=== PATIENT | male | born 2000 | race Caucasian/White ===

== ENCOUNTER 2022-05-05 08:53 | Inpatient (IN) ==
[2022-05-05] MEDS ORDERED: PROMETHAZINE 6.25 MG/50.25 ML BAG IV STA (09:12)
[2022-05-05] MEDS ORDERED: LORazepam 2 MG/1 ML VIAL IV STA ×2 (09:12→10:49)
[2022-05-05] MEDS ORDERED: SODIUM CHLORIDE 0.9% 1000ML 1,000 ML IV ONE (09:12)
--- NOTE | 2022-05-05 09:20 | Emergency Department Note ---
Impression & Plan Weakness, Anxiety ED Provider Note NAME: BLAKE LANDEROS AGE: 21 SEX: M : 2000 ARRIVES VIA: Walk-In INFORMANT: [Patient] ED PROVIDER(S): [Todd Hess MD] CHIEF COMPLAINT: Anxiety HISTORY OF PRESENT ILLNESS: Patient is a 21-year-old male who has a history of anxiety. He states that he has been back in [place] for less than a week. He is here for school. He has been feeling very anxious for 5 days, he cannot function, he cannot sleep. He feels like he is going to pass out, he cannot eat. He is weak. The patient is taking his regular medications as prescribed. He was given a prescription for Klonopin by his psychiatry team however, this medication has not helped. He has an appointment today at 330pm to see psychiatry, however, he felt so poorly, he presents to the ER. Patient is not suicidal, he is not vomiting. He is not sure if he needs to be hospitalized for his anxiety or not. He has not undergone previous psychiatric hospitalization. The patient states that he is not sure why he is more anxious. He is back here in school but really, he cannot put a finger on why he is having so much difficulty. REVIEW OF SYSTEMS: See HPI for pertinent positives and negatives. A total of ten systems were rev iewed and were otherwise negative. PMHx/PSHx: See Below SOCIAL HISTORY: See Below. PHYSICAL EXAM: GENERAL: Patient is in mild distress, quite anxious HEENT: No acute trauma, normocephalic atraumatic, mucous membranes moist, no nasal congestion, no scleral icterus. NECK: No stridor, no adenopathy, no meningismus, trachea is midline. LUNGS: Clear to auscultation bilaterally, no wheeze, no rhonchi, breath sounds equal. HEART: Without murmurs gallops or rubs, regular rate and rhythm. ABDOMEN: Soft, nontender, bowel sounds positive, no peritonitis. EXTREMITIES: No cyanosis or edema, full range of motion of all the joints without pain or difficulty, no signs for acute trauma. NEUROLOGIC: Oriented x 3, no acute motor or sensory deficits, no focal weakness. SKIN: No rash, no jaundice, no diaphoresis. Psychiatric: Anxious, cooperative, voluntary, denies being suicidal. DIFFERENTIAL DIAGNOSIS: Mood disorder, infection, hypoglycemia, anxiety, depression, suicidality, dehydration, electrolyte abnormalities, cardiac sources, intracerebral event, toxicologic etiology, trauma, neurologic event, as well as other pathologies. EMERGENCY DEPARTMENT COURSE/PROCEDURES: ECG: Indication was weakness and panic. The ECG shows a sinus rhythm with some sinus arrhythmia. The rate is 71. There is no ST elevation, no PVCs. QTC is 436. MEDICAL DECISION MAKING: There is no leukocytosis or concerning anemia. There is a normal platelet count. No renal failure or significant electrolyte abnormality. No concerning liver enzyme elevation. Patient appears to be in a euthyroid state. Urinalysis does not show any evidence for infection. Urine tox shows marijuana. Aspirin, Tylenol and alcohol levels were undetectable. COVID test returned negative. Patient presents complaining of anxiety and weakness. He was given IV saline f or hydration. He was given IV Phenergan. He received IV Ativan, a second dose of IV Ativan was given. The patient was felt medically clear. He was seen by psychiatry case management. He initially elected to go home with outpatient care but then, he suddenly felt worse and had a tearful spell, he felt that he would require an inpatient stay. The patient was seen by our psychiatric services, [facility]. He has been accepted to their floor voluntarily. The paperwork for the hospitalization was completed and signed. Past Med/Surg History Medical History Anxiety Asperger syndrome Family History Other Coronary heart disease Crohn's disease Myocardial infarction Social History Smoking Status: Current every day smoker Preferred Language: Armenian Communication Ability: Effective Medical Record Assistant Required: No Beliefs That Will Affect Care: None Feels Safe at Home: Yes Assistive Devices: Glasses Allergies Allergies Allergy/AdvReac Type Severity Reaction Status Date / Time cashew nut Allergy Intermediate itchy Verified 09/30/19 00:34 throat pistachio nut Allergy Intermediate itchy Verified 09/30/19 00:35 throat Home Meds Home Medications Medication Instructions Recorded Confirmed lamotrigine 150 mg tablet 150 mg PO DAILY 05/05/22 05/05/22 propranolol 20 mg tablet 20 mg PO BID 05/05/22 05/05/22 quetiapine 25 mg tablet See Rx Instructions .Route .COMPLEX 05/05/22 05/05/22 Results & Data (ED) Vital Signs Vital Signs - 24 hr 05/05/22 08:58 05/05/22 10:00 05/05/22 08:54 Temperature 36.6 C Temperature Source Temporal Artery Scan Pulse Rate 73 Pulse Rate [Apical] 91 H Pulse Rhythm Regular Pulse Rhythm [Apical] Regular Pulse Strength Normal Pulse Strength [Apical] Normal Respiratory Rate 18 22 Respiratory Effort / Characteristics Non-Labored Non-Labored Spontaneous Respiratory Depth Normal Normal Respiratory Pattern Regular Blood Pressure 150/86 H Blood Pressure [Left Arm] 116/65 Blood Pressure Mean 107 Blood Pressure Mean [Left Arm] 82 Blood Pressure Position Lying Blood Pressure Position [Left Arm] Lying Pulse Oximetry 99 98 98 Oxygen Delivery Method Room Air Room Air Room Air Oxygen Flow Rate 0 Sepsis Recent Fever Within 48 Hours No Sepsis New/Unexplained Change in Mental Status No Sepsis Action Taken by Nursing No Action Required Home Medications Current Medication List: was personally reviewed by me Laboratory Data Attestation: I reviewed the patient's lab results. Result diagrams: 05/05/22 09:41 05/05/22 09:41 Lab Results 05/05/22 05/05/22 05/05/22 Range/Units 09:24 09:24 09:29 WBC (4.8-10.8) K/ul RBC (4.63-6.08) M/uL Hgb (14.0-18.0) g/dl Hct (40.1-51.0) % MCV (80.0-100.0) fL MCH (25.0-34.0) pg MCHC (32.0-36.0) g/dL RDW Std Deviation (36.4-46.3) fL RDW Coeff of Marine (11.5-14.5) % Plt Count (130-400) K/uL MPV (9.4-12.4) fL Immature Gran % (Auto) % Neut % (Auto) % Lymph % (Auto) % [place] % (Auto) % Eos % (Auto) % Baso % (Auto) % Neut # (Auto) (1.4-6.5) K/uL Lymph # (Auto) (1.2-3.4) K/uL [place] # (Auto) (0.24-0.82) K/uL Eos # (Auto) (0-0.50) K/uL Baso # (Auto) (0-0.2) K/uL Immature Gran # (Auto) (0.00-0.02) K/uL Sodium (136-145) mmol/L Potassium (3.5-5.1) mmol/L Chloride (98-107) mmol/L Carbon Dioxide (21-32) mmol/L Anion Gap (3-11) BUN (6-23) mg/dl Creatinine (0.6-1.4) mg/dl Est Cr Clr Drug Dosing ml/min Est GFR ( Amer) ml/min Est GFR (Non-Af Amer) ml/min BUN/Creatinine Ratio (10-20) Glucose (70-99(Fasting)) mg/dl Calcium (8.5-10.1) mg/dl Magnesium (1.7-2.4) mg/dl Total Bilirubin (0.2-1.0) mg/dl AST (13-39) U/L ALT (7-52) U/L Alkaline Phosphatase (34-104) U/L Total Protein (6.0-8.3) gm/dl Albumin (3.4-5.0) gm/dl Globulin (2.5-4.0) gm/dl Albumin/Globulin Ratio (0.9-2) TSH (0.300-4.500) uIu/ml Urine Color Yellow Urine Appearance Clear (Clear) Urine pH 6.5 (4.5-7.5) Ur Specific [place] 1.013 (1.000-1.030) Urine Protein Negative (Negative) Urine Glucose (UA) Negative (Negative) Urine Ketones Trace H (Negative) Urine Blood Negative (Negative) Urine Nitrite Negative (Negative) Urine Bilirubin Negative (Negative) Urine Urobilinogen Negative (Negative) Ur Leukocyte Esterase Negative (Negative) Salicylates (3.0-30) mg/dl Urine Opiates Screen Neg (Neg) Ur Methadone, Qual Neg (Neg) Acetaminophen (10-30) ug/ml Urine Barbiturates Neg (Neg) Ur Phencyclidine (PCP) Neg (Neg) U Amphetamin/Meth Scrn Neg (Neg) MDMA (Ecstasy) Screen Neg (Neg) U Benzodiazepines Scrn Neg (Neg) Ur Cocaine Metabolite Neg (Neg) U Marijuana (THC) Screen Pos H (Neg) Ethyl Alcohol mg/dL (<10.0) mg/dl SARS-CoV-2, RNA, NAAT NEGATIVE (NEGATIVE) 05/05/22 05/05/22 05/05/22 Range/Units 09:41 09:41 09:41 WBC 8.74 (4.8-10.8) K/ul RBC 5.14 (4.63-6.08) M/uL Hgb 15.5 (14.0-18.0) g/dl Hct 43.3 (40.1-51.0) % MCV 84.2 (80.0-100.0) fL MCH 30.2 (25.0-34.0) pg MCHC 35.8 (32.0-36.0) g/dL RDW Std Deviation 38.1 (36.4-46.3) fL RDW Coeff of Marine 12.5 (11.5-14.5) % Plt Count 238 (130-400) K/uL MPV 11.0 (9.4-12.4) fL Immature Gran % (Auto) 0.5 % Neut % (Auto) 71.8 % Lymph % (Auto) 18.5 % [place] % (Auto) 6.8 % Eos % (Auto) 1.9 % Baso % (Auto) 0.5 % Neut # (Auto) 6.28 (1.4-6.5) K/uL Lymph # (Auto) 1.62 (1.2-3.4) K/uL [place] # (Auto) 0.59 (0.24-0.82) K/uL Eos # (Auto) 0.17 (0-0.50) K/uL Baso # (Auto) 0.04 (0-0.2) K/uL Immature Gran # (Auto) 0.04 H (0.00-0.02) K/uL Sodium 139 (136-145) mmol/L Potassium 3.6 (3.5-5.1) mmol/L Chloride 105 (98-107) mmol/L Carbon Dioxide 27 (21-32) mmol/L Anion Gap 7 (3-11) BUN 10 (6-23) mg/dl Creatinine 1.10 (0.6-1.4) mg/dl Est Cr Clr Drug Dosing 177.8 ml/min Est GFR ( Amer) 110.6 ml/min Est GFR (Non-Af Amer) 95.5 ml/min BUN/Creatinine Ratio 9.1 L (10-20) Glucose 93 (70-99(Fasting)) mg/dl Calcium 9.3 (8.5-10.1) mg/dl Magnesium 2.1 (1.7-2.4) mg/dl Total Bilirubin 1.2 H (0.2-1.0) mg/dl AST 18 (13-39) U/L ALT 32 (7-52) U/L Alkaline Phosphatase 59 (34-104) U/L Total Protein 7.5 (6.0-8.3) gm/dl Albumin 4.5 (3.4-5.0) gm/dl Globulin 3.0 (2.5-4.0) gm/dl Albumin/Globulin Ratio 1.5 (0.9-2) TSH 2.684 (0.300-4.500) uIu/ml Urine Color Urine Appearance (Clear) Urine pH (4.5-7.5) Ur Specific [place] (1.000-1.030) Urine Protein (Negative) Urine Glucose (UA) (Negative) Urine Ketones (Negative) Urine Blood (Negative) Urine Nitrite (Negative) Urine Bilirubin (Negative) Urine Urobilinogen (Negative) Ur Leukocyte Esterase (Negative) Salicylates (3.0-30) mg/dl Urine Opiates Screen (Neg) Ur Methadone, Qual (Neg) Acetaminophen (10-30) ug/ml Urine Barbiturates (Neg) Ur Phencyclidine (PCP) (Neg) U Amphetamin/Meth Scrn (Neg) MDMA (Ecstasy) Screen (Neg) U Benzodiazepines Scrn (Neg) Ur Cocaine Metabolite (Neg) U Marijuana (THC) Screen (Neg) Ethyl Alcohol mg/dL (<10.0) mg/dl SARS-CoV-2, RNA, NAAT (NEGATIVE) 05/05/22 05/05/22 Range/Units 09:41 09:41 WBC (4.8-10.8) K/ul RBC (4.63-6.08) M/uL Hgb (14.0-18.0) g/dl Hct (40.1-51.0) % MCV (80.0-100.0) fL MCH (25.0-34.0) pg MCHC (32.0-36.0) g/dL RDW Std Deviation (36.4-46.3) fL RDW Coeff of Marine (11.5-14.5) % Plt Count (130-400) K/uL MPV (9.4-12.4) fL Immature Gran % (Auto) % Neut % (Auto) % Lymph % (Auto) % [place] % (Auto) % Eos % (Auto) % Baso % (Auto) % Neut # (Auto) (1.4-6.5) K/uL Lymph # (Auto) (1.2-3.4) K/uL [place] # (Auto) (0.24-0.82) K/uL Eos # (Auto) (0-0.50) K/uL Baso # (Auto) (0-0.2) K/uL Immature Gran # (Auto) (0.00-0.02) K/uL Sodium (136-145) mmol/L Potassium (3.5-5.1) mmol/L Chloride (98-107) mmol/L Carbon Dioxide (21-32) mmol/L Anion Gap (3-11) BUN (6-23) mg/dl Creatinine (0.6-1.4) mg/dl Est Cr Clr Drug Dosing ml/min Est GFR ( Amer) ml/min Est GFR (Non-Af Amer) ml/min BUN/Creatinine Ratio (10-20) Glucose (70-99(Fasting)) mg/dl Calcium (8.5-10.1) mg/dl Magnesium (1.7-2.4) mg/dl Total Bilirubin (0.2-1.0) mg/dl AST (13-39) U/L ALT (7-52) U/L Alkaline Phosphatase (34-104) U/L Total Protein (6.0-8.3) gm/dl Albumin (3.4-5.0) gm/dl Globulin (2.5-4.0) gm/dl Albumin/Globulin Ratio (0.9-2) TSH (0.300-4.500) uIu/ml Urine Color Urine Appearance (Clear) Urine pH (4.5-7.5) Ur Specific [place] (1.000-1.030) Urine Protein (Negative) Urine Glucose (UA) (Negative) Urine Ketones (Negative) Urine Blood (Negative) Urine Nitrite (Negative) Urine Bilirubin (Negative) Urine Urobilinogen (Negative) Ur Leukocyte Esterase (Negative) Salicylates < 3.0 L (3.0-30) mg/dl Urine Opiates Screen (Neg) Ur Methadone, Qual (Neg) Acetaminophen < 3 L (10-30) ug/ml Urine Barbiturates (Neg) Ur Phencyclidine (PCP) (Neg) U Amphetamin/Meth Scrn (Neg) MDMA (Ecstasy) Screen (Neg) U Benzodiazepines Scrn (Neg) Ur Cocaine Metabolite (Neg) U Marijuana (THC) Screen (Neg) Ethyl Alcohol mg/dL < 10.0 (<10.0) mg/dl SARS-CoV-2, RNA, NAAT (NEGATIVE) Administered Medications Hydroxyzine HCl (Hydroxyzine Hcl 25 Mg Tab) 25 mg PO Q4H PRN PRN Reason: Anxiety Stop: 06/04/22 12:47 Last Admin: 05/05/22 14:21 Dose: 25 mg Documented By: NIKKI Discontinued Medications Sodium Chloride (Nss 1000ml) 1,000 mls @ 999 mls/hr IV .Q1H1M ONE Stop: 05/05/22 10:12 Last Infusion: 05/05/22 10:33 Dose: 0 mls/hr Documented By: Admin: 05/05/22 09:31 Dose: 999 mls/hr Documented By: KELLE Promethazine HCl (Phenergan) 6.25 mg in 50.25 mls @ 201 mls/hr IV NOW STA Stop: 05/05/22 09:26 Last Infusion: 05/05/22 09:58 Dose: 0 mls/hr Documented By: Admin: 05/05/22 09:31 Dose: 201 mls/hr Documented By: KELLE Lorazepam (Lorazepam 2 Mg/1 Ml Vial) 1 mg IV NOW STA; Protocol Stop: 05/05/22 09:13 Last Admin: 05/05/22 09:31 Dose: 1 mg Documented By: KELLE Lorazepam (Lorazepam 2 Mg/1 Ml Vial) 1 mg IV NOW STA; Protocol Stop: 05/05/22 10:50 Last Admin: 05/05/22 13:05 Dose: Not Given Documented By: SIA Discharge Plan Visit Data Chief Complaint: Anxiety Stated Complaint: PANIC ATTACKS SINCE WEDNESDAY ED Provider: Todd Hess Discharge Problem: Weakness, Anxiety Patient Disposition: Admitted As Inpatient Condition: Good Discharge Instructions Interventions: ED Discharge Assessment Last Done: 05/05/22 13:12
[2022-05-05 09:59] LABS: Appearance Urine Clear (Clear); Bilirubin Urine Negative (Negative); Blood Urine Negative (Negative); Color Urine Yellow; Glucose Urine UA Negative (Negative); Ketones Urine Trace (Negative); Leukocyte Esterase Urine Negative (Negative); Nitrite Urine Negative (Negative); Protein Urine Negative (Negative); Specific Gravity Urine 1.013 (1.000-1.030); Urobilinogen Urine Negative (Negative); pH Urine 6.5 (4.5-7.5)
[2022-05-05 10:02] LABS: Basophils # (auto) 0.04 K/uL (0-0.2); Basophils % (auto) 0.5 %; Eosinophils # (auto) 0.17 K/uL (0-0.50); Eosinophils % (auto) 1.9 %; Hematocrit (blood only) 43.3 % (40.1-51.0); Hemoglobin 15.5 g/dl (14.0-18.0); Immature Granulocytes # (auto) 0.04 K/uL (0.00-0.02); Immature Granulocytes % (auto) 0.5 %; Lymphocytes # (auto) 1.62 K/uL (1.2-3.4); Lymphocytes % (auto) 18.5 %; Mean Corpuscular Hemoglobin 30.2 pg (25.0-34.0); Mean Corpuscular Hgb Conc 35.8 g/dL (32.0-36.0); Mean Corpuscular Volume 84.2 fL (80.0-100.0); Monocytes # (auto) 0.59 K/uL (0.24-0.82); Monocytes % (auto) 6.8 %; Neutrophils # (auto) 6.28 K/uL (1.4-6.5); Neutrophils % (auto) 71.8 %; Platelet Count 238 K/uL (130-400); RDW Coefficient of Variation 12.5 % (11.5-14.5); RDW Standard Deviation 38.1 fL (36.4-46.3); Red Blood Count 5.14 M/uL (4.63-6.08); White Blood Count 8.74 K/ul (4.8-10.8)
[2022-05-05 10:22] LABS: Amphetamines+Metham, Urine Neg (Neg); Barbiturates, Urine Neg (Neg); Benzodiazepine, Urine Neg (Neg); Cocaine, Urine Neg (Neg); MDMA (Ecstacy), Urine Neg (Neg); Methadone, Urine Neg (Neg); Opiate, Urine Neg (Neg); Phencyclidine, Urine Neg (Neg)
[2022-05-05 10:23] LABS: Acetaminophen < 3 ug/ml (10-30); Salicylate < 3.0 mg/dl (3.0-30)
[2022-05-05 10:24] LABS: Albumin Globulin Ratio 1.5 (0.9-2); Albumin Level 4.5 gm/dl (3.4-5.0); BUN Creatinine Ratio 9.1 (10-20); Bilirubin,Total 1.2 mg/dl (0.2-1.0); Calcium 9.3 mg/dl (8.5-10.1); Creatinine Clr Calc Pharmacy 177.8 ml/min; Est GFR (African American) 110.6 ml/min; Est GFR (Non-African American) 95.5 ml/min; Magnesium 2.1 mg/dl (1.7-2.4); Potassium 3.6 mmol/L (3.5-5.1); Total Protein 7.5 gm/dl (6.0-8.3)
--- NOTE | 2022-05-05 11:49 | Electrocardiogram Report ---
Test Reason : Blood Pressure : / mmHG Vent. Rate : 071 BPM Atrial Rate : 071 BPM P-R Int : 164 ms QRS Dur : 108 ms QT Int : 402 ms P-R-T Axes : 038 016 027 degrees QTc Int : 436 ms Sinus rhythm with marked sinus arrhythmia Otherwise normal ECG No previous ECGs available Confirmed by Jorge Hopson ([id number]) on 05/05/2022 11:49:10 AM Referred By: Confirmed By:Jorge Hopson
[2022-05-05] MEDS ORDERED: MAGNESIUM HYDROXIDE SUSP 30 ML UDC PO PRN (12:48)
[2022-05-05] MEDS ORDERED: ACETAMINOPHEN 325 MG TAB PO PRN (12:48)
[2022-05-05] MEDS ORDERED: ALUMINUM/MAGNESIUM SUSP 30 ML UDC PO PRN (12:48)
[2022-05-05] MEDS ORDERED: SODIUM CHLORIDE 0.65% NA SOLN 45 ML (OCEAN) PRN (12:48)
[2022-05-05] MEDS ORDERED: BISMUTH SUBSALICYLATE LIQD 236 ML PO PRN (12:48)
[2022-05-05] MEDS: hydrOXYzine HCl 25 MG TAB PO PRN (14:21)
[2022-05-05] MEDS: PROPRANOLOL HCL 20 MG TAB PO SCH (18:11)
[2022-05-05] MEDS: QUEtiapine FUMARATE 25 MG TABLET PO SCH (18:12)
[2022-05-05] MEDS ORDERED: PROPRANOLOL HCL 20 MG TAB PO SCH (21:00)
[2022-05-05] MEDS: QUEtiapine FUMARATE 200 MG TAB PO SCH (21:11)
[2022-05-06] MEDS: hydrOXYzine HCl 25 MG TAB PO PRN ×3 (06:27→21:41)
[2022-05-06] MEDS: lamoTRIgine 100 MG TAB PO SCH (07:27)
[2022-05-06] MEDS: QUEtiapine FUMARATE 25 MG TABLET PO SCH ×2 (07:27→16:00)
[2022-05-06] MEDS: PROPRANOLOL HCL 20 MG TAB PO SCH ×2 (07:28→16:00)
[2022-05-06] MEDS ORDERED: QUEtiapine FUMARATE 25 MG TABLET PO SCH (09:00)
--- NOTE | 2022-05-06 10:12 | History & Physical ---
Date of Service May 06, 2022 Impression / Recommendations Impression The patient is a 21 year old with a history of ASD, BPAD, anxiety, depression who was admitted for inability to function. Diagnostically consistent with BPAD current depressive episode as well as COURT with panic attacks, PTSD with some derealization/depersonalization and ASD and ADHD by history. He has not found benzodiazepines nor SSRIs helpful in the past but has found some benefit from lamictal and seroquel. Seems that processing of past trauma has lead to significant worsening of mood symptoms as well as cannabis use likely contributing to high anxiety/panic attacks. The patient is deemed unstable and requires psychiatric hospitalization for diagnostic clarification, safety and stabilization, medication management and development of further coping skills. Discussed medication treatment options in detail including SSRI/SNRI/lamictal/antipsychotics/propranolol/clonidine/mirtazapine/gabapentin/m ood stabilizers. Discussed risks, benefits and alternatives. Patient would like to continue with seroquel, lamictal and propranolol and would like to start and consented to Effexor for anxiety and depression and gabapentin for panic attacks. He understands that gabapentin is FDA off-label use for anxiety/panic and reviewed side effects including but not limited to dizziness/respiratory depression with gabapentin, low BP/syncope with propranolol. Reviewed side effects including but not limited to for Effexor: GI, CARRERA, sexual side effects, and counseled on black box warning of potential for emergence of or increased SI and need to let staff know should this occur or should they feel unsafe. Also di scussed importance of seeking emergency care following discharge if this side effect occurs in the future as well with seroquel of movement (TD, NMS), cardiac (QTc prolongation), and metabolic (stroke, insulin resistance) and necessity for fasting lipid and glucose labwork and AIMS done with score of 0. (1) Bipolar 1 disorder, depressed, severe: (2) Generalized anxiety disorder with panic attacks: (3) Autism spectrum disorder: (4) Insomnia: (5) ADHD: Plan 05/06/22: The patient was admitted to the [facility] ([facility] mental [facility] unit) on q15 min checks (behavioral with suicide precautions) for safety. The patient will participate in group, recreational, and milieu therapies and will be offered additional individual and family sessions as clinically appropriate. -Continue with seroquel and lamictal and propranolol -Add gabapentin 100mg TID prn for anxiety -Start Effexor XR 37.5mg qd -Fasting lipid panel/glucose tomorrow morning -Will reach out to his outpatient psychiatric provider -In future ideally could taper seroquel and consider mirtazapine trial and/or clonidine Inventory Assets Strengths: very involved with academics and [employer] community, supportive father, outpatient providers Needs: safety and stabilization, medication adjustment, additional coping skills, increased outpatient services Suicide Risk Level Suicide Risk Level: Moderate (q15 min suicide checks) Suicide Risk Level Comments: Moderate due to severe depression and anxiety with passive SI and constant panic attacks but feels safe in the hospital, able to safety contract and agrees to let nursing/staff know should they develop plan, intent or feel unable to remain safe. Risk Factors Assessment Male: Yes : Yes Do You Have Access To A Gun?: No Mental Health Diagnoses: Yes Previous Attempt: No Family History of Suicide: No Previous Psychiatric Hospitalization: No Hopelessness: Yes Protective Factors Assessment Employed: No Stable Relationships: Yes Supportive Family: Yes Good Rapport with Provider: Yes Psychiatric History Identifying Data DES LANDEROS is a 21-year-old and [employer] senior who currently lives in [place] with roommates, has a history of ASD, BPAD, ADHD, PTSD anxiety and depression, and was admitted on 05/05/22 12:48 on a 201 voluntary commitment for inability to function with lack of eating and sleeping over the last week. Chief Complaint "All of my emotions have been blown out of porportion". History of Present Illness Des presents for psychiatric admission for worsening depression, anxiety and inability to function including lack of sleep and not eating in the context of multiple psychosocial stressors including the transition of starting his senior year of college, managing expectations and grief from the of his mother, feeling overwhelmed by his courses/club obligations and processing past traumatic events. He has extreme tearfulness from the moment we started the interview and he notes "I'm just really afraid that nothing is going to work or help". He notes that he's tried a lot of medication and that they seem to help very much. He notes "I have to do coping mechanisms / or I constantly have panic attacks". States he already had two panic attacks this morning.He states that because his anxiety has been so severe he hasn't been able "to eat all week". Since returning to campus last week for the start of his [employer] senior year he has felt extremely overwhelmed and has not been able to function. He attributes some of his challenges to processing past trauma for the first time in recent weeks and that's made him feel very anxious and hopeless. He endorse depressive symptoms including anhedonia, tearfulness, hopelessness, helplessness, decreased energy, decreased motivation, decreased concentration (went to class on Wednesday and couldn't remember anything or pay attention), decreased sleep with frequent awakenings, decreased appetite. Also with intermittent passive SI "because I just wish this would stop". He endorse anxiety symptoms including excessive worry, restlessness, fatigue, muscle tension, "pit of my stomach", "hot flashes", insomnia, decreased concentration, and panic attacks about 6-7 per day which last 20minutes to an hour "with physical symptoms from the minute I wake up till the moment I go to bed" and fear about leaving his room due to having more panic attacks. He endorse PTSD symptoms including intrusive memories, mood changes, emotional lability, decreased concentration, denies night terrors. Endorses significant depersonalization/derealization. He says he often feels "like everything is fake and like there is a veil over my life" and sometimes like he is outside his body watching himself "go through the motions". He experienced it yesterday, it comes and goes since Brian year of high school. He is currently prescribed psychiatric medications of lamictal (on for about 3 months, he's not sure if it's had an effect), Seroquel (for about 2 months, he feels it worked at first by helping him sleep and less "outbursts of emotion"), propranolol (for a few years in the past and then restarted after lamictal for restlessness, he's unsure if this helps) . Psychiatric ROS notable for history of manic episode in the spring with increase in activities, wasn't sleeping, high energy, elevated mood; no hx psychosis; no hx OCD nor eating disorder nor self-harm. Past Psychiatric History Previous Psych History: Bipolar disorder-due to episode of andi in January 2022, ASD, ADHD, anxiety, depression, PTSD Current Psychiatric Diagnosis: Unspecified Mood Disorder. Outpatient Services: Psychiatric services through [facility] with Madiha Nery, outpatient therapy with Janina Villeda at [facility], partial hospitalization program in third grade Previous Psych Admissions: n/a Do You Have Access To A Gun?: No History of Previous Suicide Attempt: No Past Medication Trials: fluoxetine, sertraline, Wellbutrin, Concerta, Focalin, risperidone, Vraylar, Abilify, Ativan, Klonopin, trazodone, Strattera, hx guanfacine. Never tried Effexor, mirtazapine, lithium nor depakote nor buspar, nor clondine nor gabapentin. Past Head Trauma/Neuro History History of Concussion/Seizure: Yes (concussion in Sep 2019, hit head the other day and had CARRERA but no LOC) Allergies Allergy/AdvReac Type Severity Reaction Status Date / Time cashew nut Allergy Intermediate itchy Verified 09/30/19 00:34 throat pistachio nut Allergy Intermediate itchy Verified 09/30/19 00:35 throat Home Medications Medication Instructions Recorded Confirmed Type lamotrigine 150 mg tablet 150 mg PO DAILY 05/05/22 05/05/22 History propranolol 20 mg tablet 20 mg PO BID 05/05/22 05/05/22 History quetiapine 25 mg tablet See Rx Instructions .Route .COMPLEX 05/05/22 05/05/22 History Family History Family History of: None Alcohol History Hx of Alcohol Use Over the Past 12 Months: Yes (wine, a few glasses, ocasionally.) AUDIT Total Score: 7 No alcohol use recently Smoking Use Have You Smoked or Used Tobacco Products in the Last 30 Days: No Smoking Status: Never smoker Substance History Hx of Prescription Med Misuse Over the Past 12 Months: No Hx of Over the Counter Med Misuse Over the Past 12 Months: No Hx of Inhalent Misuse Over the Past 12 Months: No Hx of Organic Substance Use Over the Past 12 Months: Yes (marijuana, ocasionally, a few days ago.) Hx of Illegal Substances/Street Drug Use Over Past 12 Months: No Problems as a Result of Past Substance Use: None Identified Smokes marijuana to manage anxiety Personal History Living Arrangements: Apartment (roommates) Childhood: Grew up in [place], His mother when he was 14. He is now close with his dad. No siblings. 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[employer]) Employment Status: Student Marital Status: Single Beliefs That Will Affect Care: None Current Legal Problems: No Hx Legal Problems: Yes (underage drinking Sep 2019) Hx Traumatic Life Events: Yes Patient History Medical History (Updated 05/06/22 @ 10:38 by Elam Pineda MD) ADHD Anxiety Asperger syndrome Autism spectrum disorder Family History Other Coronary heart disease Crohn's disease Myocardial infarction Social History Smoking Status: Never smoker Preferred Language: Cameroonian Communication Ability: Effective Cnc Grinder Required: No Beliefs That Will Affect Care: None Feels Safe at Home: Yes Assistive Devices: Glasses Review of Systems Review of Systems: All systems reviewed & are unremarkable except as noted in HPI & below (dizziness, hot flashes, tension in stomach and chest, feels like his arms get numb) Physical Exam Psychiatric: Orientation: alert and oriented x 3 Apperance: appropriately dressed and appropriately groomed Eye Contact: good eye contact Motor Behavior: no abnormal motor movements Speech: normal rate/rhythm/volume of speech Affect: + depressed affect, + anxious affect and + tearful affect Mood: + depressed mood and + anxious mood Thought Process: goal directed thought process Thought Content: reality based without delusions Suicidal Thoughts: + reports suicidal thoughts (intermittent passive SI ) Homicidal Thoughts: denies homicidal thoughts Hallucinations: no auditory hallucinations and no visual hallucinations Cognition: recent memory grossly intact, remote memory grossly intact, attention grossly intact and language grossly intact Estimated Intelligence: consistent with education level Insight: + fair insight Judgement: + fair judgement Vital Signs (Past 24 Hours): Last Vital Signs Temp 36.6 C 05/06/22 06:25 Pulse 86 05/06/22 07:39 Resp 16 05/06/22 06:25 BP 136/96 05/06/22 07:39 Pulse Ox 98 05/05/22 14:09 O2 Del Method 05/05/22 14:09 O2 Flow Rate 0 05/05/22 08:54 Exam Statement: A physical exam was performed in the ED by Deshawn for the purposes of medical clearance. I accept that physical as correct and adequate for the purposes of the inpatient physical exam. Results & Data (U) Laboratory Results Laboratory Results - last 24 hr 05/05/22 05/05/22 05/05/22 09:24 09:24 09:24 WBC RBC Hgb Hct MCV MCH MCHC RDW Std Deviation RDW Coeff of Marine Plt Count MPV Immature Gran % (Auto) Neut % (Auto) Lymph % (Auto) Barber % (Auto) Eos % (Auto) Baso % (Auto) Neut # (Auto) Lymph # (Auto) Barber # (Auto) Eos # (Auto) Baso # (Auto) Immature Gran # (Auto) Sodium Potassium Chloride Carbon Dioxide Anion Gap BUN Creatinine Est Cr Clr Drug Dosing Est GFR ( Amer) Est GFR (Non-Af Amer) BUN/Creatinine Ratio Glucose Calcium Magnesium Total Bilirubin AST ALT Alkaline Phosphatase Total Protein Albumin Globulin Albumin/Globulin Ratio TSH Urine Color Yellow Urine Appearance Clear Urine pH 6.5 Ur Specific [place] 1.013 Urine Protein Negative Urine Glucose (UA) Negative Urine Ketones Trace H Urine Blood Negative Urine Nitrite Negative Urine Bilirubin Negative Urine Urobilinogen Negative Ur Leukocyte Esterase Negative Salicylates Urine Opiates Screen Neg Ur Methadone, Qual Neg Acetaminophen Urine Barbiturates Neg Ur Phencyclidine (PCP) Neg U Amphetamin/Meth Scrn Neg MDMA (Ecstasy) Screen Neg U Benzodiazepines Scrn Neg Ur Cocaine Metabolite Neg U Marijuana (THC) Screen Pos H U Marijuana THC Carboxy Pending Drug Screen Comment Pending Ethyl Alcohol mg/dL SARS-CoV-2, RNA, NAAT 05/05/22 05/05/22 05/05/22 09:29 09:41 09:41 WBC 8.74 RBC 5.14 Hgb 15.5 Hct 43.3 MCV 84.2 MCH 30.2 MCHC 35.8 RDW Std Deviation 38.1 RDW Coeff of Marine 12.5 Plt Count 238 MPV 11.0 Immature Gran % (Auto) 0.5 Neut % (Auto) 71.8 Lymph % (Auto) 18.5 Barber % (Auto) 6.8 Eos % (Auto) 1.9 Baso % (Auto) 0.5 Neut # (Auto) 6.28 Lymph # (Auto) 1.62 Barber # (Auto) 0.59 Eos # (Auto) 0.17 Baso # (Auto) 0.04 Immature Gran # (Auto) 0.04 H Sodium 139 Potassium 3.6 Chloride 105 Carbon Dioxide 27 Anion Gap 7 BUN 10 Creatinine 1.10 Est Cr Clr Drug Dosing 177.8 Est GFR ( Amer) 110.6 Est GFR (Non-Af Amer) 95.5 BUN/Creatinine Ratio 9.1 L Glucose 93 Calcium 9.3 Magnesium 2.1 Total Bilirubin 1.2 H AST 18 ALT 32 Alkaline Phosphatase 59 Total Protein 7.5 Albumin 4.5 Globulin 3.0 Albumin/Globulin Ratio 1.5 TSH Urine Color Urine Appearance Urine pH Ur Specific [place] Urine Protein Urine Glucose (UA) Urine Ketones Urine Blood Urine Nitrite Urine Bilirubin Urine Urobilinogen Ur Leukocyte Esterase Salicylates Urine Opiates Screen Ur Methadone, Qual Acetaminophen Urine Barbiturates Ur Phencyclidine (PCP) U Amphetamin/Meth Scrn MDMA (Ecstasy) Screen U Benzodiazepines Scrn Ur Cocaine Metabolite U Marijuana (THC) Screen U Marijuana THC Carboxy Drug Screen Comment Ethyl Alcohol mg/dL SARS-CoV-2, RNA, NAAT NEGATIVE 05/05/22 05/05/22 05/05/22 09:41 09:41 09:41 WBC RBC Hgb Hct MCV MCH MCHC RDW Std Deviation RDW Coeff of Marine Plt Count MPV Immature Gran % (Auto) Neut % (Auto) Lymph % (Auto) Barber % (Auto) Eos % (Auto) Baso % (Auto) Neut # (Auto) Lymph # (Auto) Barber # (Auto) Eos # (Auto) Baso # (Auto) Immature Gran # (Auto) Sodium Potassium Chloride Carbon Dioxide Anion Gap BUN Creatinine Est Cr Clr Drug Dosing Est GFR ( Amer) Est GFR (Non-Af Amer) BUN/Creatinine Ratio Glucose Calcium Magnesium Total Bilirubin AST ALT Alkaline Phosphatase Total Protein Albumin Globulin Albumin/Globulin Ratio TSH 2.684 Urine Color Urine Appearance Urine pH Ur Specific [place] Urine Protein Urine Glucose (UA) Urine Ketones Urine Blood Urine Nitrite Urine Bilirubin Urine Urobilinogen Ur Leukocyte Esterase Salicylates < 3.0 L Urine Opiates Screen Ur Methadone, Qual Acetaminophen < 3 L Urine Barbiturates Ur Phencyclidine (PCP) U Amphetamin/Meth Scrn MDMA (Ecstasy) Screen U Benzodiazepines Scrn Ur Cocaine Metabolite U Marijuana (THC) Screen U Marijuana THC Carboxy Drug Screen Comment Ethyl Alcohol mg/dL < 10.0 SARS-CoV-2, RNA, NAAT Current Inpatient Medications Current Inpatient Medications: Current Inpatient Medications Acetaminophen (Acetaminophen 325 Mg Tab) 650 mg PO Q4H PRN PRN Reason: Headache or Minor Fever Stop: 06/04/22 12:47 Al Hydrox/Mg Hydrox/Simethicone (Aluminum/Magnesium Susp 30 Ml Udc) 30 ml PO Q4H PRN PRN Reason: GI Upset Stop: 06/04/22 12:47 Bismuth Subsalicylate (Bismuth Subsalicylate Liqd 236 Ml) 15 ml PO PRN PRN PRN Reason: Loose Stool Stop: 06/04/22 12:47 Hydroxyzine HCl (Hydroxyzine Hcl 25 Mg Tab) 50 mg PO HSZ PRN PRN Reason: Insomnia Stop: 06/04/22 12:47 Hydroxyzine HCl (Hydroxyzine Hcl 25 Mg Tab) 25 mg PO Q4H PRN PRN Reason: Anxiety Stop: 06/04/22 12:47 Last Admin: 05/06/22 06:27 Dose: 25 mg Lamotrigine (Lamotrigine 100 Mg Tab) 150 mg PO DAILY SHA Stop: 06/05/22 08:59 Last Admin: 05/06/22 07:27 Dose: 150 mg Magnesium Hydroxide (Magnesium Hydroxide Susp 30 Ml Udc) 30 ml PO DAILY PRN PRN Reason: Constipation Stop: 06/04/22 12:47 Propranolol HCl (Propranolol Hcl 20 Mg Tab) 20 mg PO BID@0900,1600 SHA Stop: 06/05/22 08:59 Last Admin: 05/06/22 07:28 Dose: 20 mg Quetiapine Fumarate (Quetiapine Fumarate 200 Mg Tab) 200 mg PO HS SHA Stop: 06/04/22 21:59 Last Admin: 05/05/22 21:11 Dose: 200 mg Quetiapine Fumarate (Quetiapine Fumarate 25 Mg Tablet) 25 mg PO BID@0900,1600 SHA Stop: 06/05/22 08:59 Last Admin: 05/06/22 07:27 Dose: 25 mg Sodium Chloride (Sodium Chloride 0.65% Na Soln 45 Ml ([place]ken)) 1 - 2 sprays NA PRN PRN PRN Reason: Nasal Dryness/Congestion Stop: 06/04/22 12:47
[2022-05-06] MEDS: VENLAFAXINE HCL XR 37.5 MG CAPXR PO SCH (11:41)
[2022-05-06] MEDS: GABAPENTIN 100 MG CAP PO PRN ×2 (12:50→19:02)
[2022-05-06] MEDS: QUEtiapine FUMARATE 200 MG TAB PO SCH (21:41)
[2022-05-07 00:21] LABS: Marijuana Quant, GCMS Urine 2052 ng/mL (<5)
[2022-05-07] MEDS: lamoTRIgine 100 MG TAB PO SCH (08:08)
[2022-05-07] MEDS: QUEtiapine FUMARATE 25 MG TABLET PO SCH ×2 (08:08→17:13)
[2022-05-07] MEDS: VENLAFAXINE HCL XR 37.5 MG CAPXR PO SCH (08:08)
[2022-05-07] MEDS: PROPRANOLOL HCL 20 MG TAB PO SCH ×2 (08:09→17:12)
--- NOTE | 2022-05-07 08:47 | Psychiatric Progress Note ---
Date of Service May 07, 2022 Impression / Recommendations Impression The patient is a 21 year old with a history of ASD, BPAD, anxiety, depression who was admitted for inability to function. Diagnostically consistent with BPAD current depressive episode as well as COURT with panic attacks, PTSD with some derealization/depersonalization and ASD and ADHD by history. He has not found benzodiazepines nor SSRIs helpful in the past but has found some benefit from lamictal and seroquel. Seems that processing of past trauma has lead to significant worsening of mood symptoms as well as cannabis use likely contributing to high anxiety/panic attacks. The patient is deemed unstable and requires psychiatric hospitalization for diagnostic clarification, safety and stabilization, medication management and development of further coping skills. MNPR due to episodes of intense anxiety and overwhelming to peers. 05/07/22: Ongoing anxiety and depression. Tolerating initiation of gabapentin without side effects, consents to dose increase to continue to target panic attacks. Tolerating initial dose of Effexor for depression and anxiety. Agreeing to referral for IOP for anxiety. Left message for his outpatient psychiatric provider Madiha Gabriel with clinical update. (1) Bipolar 1 disorder, depressed, severe: (2) Generalized anxiety disorder with panic attacks: (3) Autism spectrum disorder: (4) Insomnia: (5) ADHD: Plan 05/07/22: Increase gabapentin to 300mg TID. Continue with Effexor XR and other medications. 05/06/22: The patient was admitted to the [facility] ([facility] mental health unit) on q15 min checks (behavioral with suicide precautions) for safety. The patient will participate in group, recreational, and milieu therapies and will be offered additional individual and family sessions as clinically appropriate. -Continue with seroquel and lamictal and propranolol -Add gabapentin 100mg TID prn for anxiety -Start Effexor XR 37.5mg qd -Fasting lipid panel/glucose tomorrow morning -Will reach out to his outpatient psychiatric provider -In future ideally could taper seroquel and consider mirtazapine trial and/or clonidine Inventory Assets Strengths: very involved with academics and [employer] community, supportive father, outpatient providers Needs: safety and stabilization, medication adjustment, additional coping skills, increased outpatient services Suicide Risk Level Suicide Risk Level: Moderate (q15 min suicide checks) Suicide Risk Level Comments: Moderate due to severe depression and anxiety with passive SI and constant panic attacks but feels safe in the hospital, able to safety contract and agrees to let nursing/staff know should they develop plan, intent or feel unable to remain safe. Risk Factors Assessment Male: Yes : Yes Do You Have Access To A Gun?: No Mental Health Diagnoses: Yes Previous Attempt: No Family History of Suicide: No Previous Psychiatric Hospitalization: No Hopelessness: Yes Protective Factors Assessment Employed: No Stable Relationships: Yes Supportive Family: Yes Good Rapport with Provider: Yes Interval History Identifying Information BLAKE LADNEROS is a 21-year-old and [employer] senior who currently lives in [place] with roommates, has a history of ASD, BPAD, ADHD, PTSD anxiety and depression, and was admitted on 05/05/22 12:48 on a 201 voluntary commitment for inability to function with lack of eating and sleeping over the last week. Chief Complaint "The gabapentin is helping but it wears off before I can get the next dose". Review of Systems Sleep Information Total Hours of Sleep: 4 Meal Information Percent Meal Consumed - Breakfast: 60 Percent Meal Consumed - Lunch: 25 Percent Meal Consumed - Dinner: 75 Subjective Subjective Patient was seen & assessed and interval progress reviewed with treatment team nursing and social work. Up early anxiously awaiting fasting labs. He reports sleeping well but he only slept 4 hours. Had a CARRERA this morning. Continues to struggle with intense anxiety but once distracted does well. Has requested frequent prns for anxiety. Does well with reassurance. Today reports his mood is improving and finding the gabapentin helpful but finds effect wears off quickly. No side effects from first dose of Effexor except for mild gas. Physical Exam Psychiatric Orientation: alert and oriented x 3 Apperance: appropriately dressed and appropriately groomed Eye Contact: good eye contact Motor Behavior: no abnormal motor movements Speech: normal rate/rhythm/volume of speech Affect: + depressed affect and + anxious affect Mood: + depressed mood and + anxious mood Thought Process: goal directed thought process Thought Content: reality based without delusions Suicidal Thoughts: denies suicidal thoughts Homicidal Thoughts: denies homicidal thoughts Hallucinations: no auditory hallucinations and no visual hallucinations Cognition: recent memory grossly intact, remote memory grossly intact, attention grossly intact and language grossly intact Estimated Intelligence: consistent with education level Insight: + fair insight Judgement: + fair judgement Vital Signs (Past 24 Hours) Last Vital Signs Temp 36.9 C 05/07/22 06:00 Pulse 80 08/25/22 06:03 Resp 16 05/07/22 06:00 BP 133/92 05/07/22 06:03 Pulse Ox 98 05/05/22 14:09 O2 Del Method 05/05/22 14:09 O2 Flow Rate 0 05/05/22 08:54 Results & Data ([facility]) Laboratory Results Laboratory Results - last 24 hr 05/05/22 05/07/22 09:24 08:23 Fasting Glucose Pending Triglycerides Pending Cholesterol Pending LDL Cholesterol, Calc Pending VLDL Cholesterol, Calc Pending HDL Cholesterol Pending Cholesterol/HDL Ratio Pending U Marijuana THC Carboxy 2051 H Drug Screen Comment SEE NOTE Current Inpatient Medications Current Inpatient Medications: Current Inpatient Medications Acetaminophen (Acetaminophen 325 Mg Tab) 650 mg PO Q4H PRN PRN Reason: Headache or Minor Fever Stop: 06/04/22 12:47 Last Admin: 05/07/22 04:57 Dose: 650 mg Al Hydrox/Mg Hydrox/Simethicone (Aluminum/Magnesium Susp 30 Ml Udc) 30 ml PO Q4H PRN PRN Reason: GI Upset Stop: 06/04/22 12:47 Bismuth Subsalicylate (Bismuth Subsalicylate Liqd 236 Ml) 15 ml PO PRN PRN PRN Reason: Loose Stool Stop: 06/04/22 12:47 Gabapentin (Gabapentin 100 Mg Cap) 100 mg PO TID PRN PRN Reason: Anxiety Stop: 06/05/22 13:59 Last Admin: 05/06/22 19:02 Dose: 100 mg Hydroxyzine HCl (Hydroxyzine Hcl 25 Mg Tab) 50 mg PO HSZ PRN PRN Reason: Insomnia Stop: 06/04/22 12:47 Last Admin: 05/06/22 21:41 Dose: 50 mg Hydroxyzine HCl (Hydroxyzine Hcl 25 Mg Tab) 25 mg PO Q4H PRN PRN Reason: Anxiety Stop: 06/04/22 12:47 Last Admin: 05/06/22 15:15 Dose: 25 mg Lamotrigine (Lamotrigine 100 Mg Tab) 150 mg PO DAILY SHA Stop: 06/05/22 08:59 Last Admin: 05/07/22 08:08 Dose: 150 mg Magnesium Hydroxide (Magnesium Hydroxide Susp 30 Ml Udc) 30 ml PO DAILY PRN PRN Reason: Constipation Stop: 06/04/22 12:47 Propranolol HCl (Propranolol Hcl 20 Mg Tab) 20 mg PO BID@0900,1600 SHA Stop: 06/05/22 08:59 Last Admin: 05/07/22 08:09 Dose: 20 mg Quetiapine Fumarate (Quetiapine Fumarate 200 Mg Tab) 200 mg PO HS SHA Stop: 06/04/22 21:59 Last Admin: 05/06/22 21:41 Dose: 200 mg Quetiapine Fumarate (Quetiapine Fumarate 25 Mg Tablet) 25 mg PO BID@0900,1600 SHA Stop: 06/05/22 08:59 Last Admin: 05/07/22 08:08 Dose: 25 mg Sodium Chloride (Sodium Chloride 0.65% Na Soln 45 Ml ([place])) 1 - 2 sprays NA PRN PRN PRN Reason: Nasal Dryness/Congestion Stop: 06/04/22 12:47 Venlafaxine HCl (Venlafaxine Hcl Xr 37.5 Mg Capxr) 37.5 mg PO QAM SHA Stop: 06/05/22 10:44 Last Admin: 05/07/22 08:08 Dose: 37.5 mg Mental Health & Subst Abuse Tx Psychiatrist Name of Psychiatrist: [place] [facility] Psychiatrist's Psychiatric Appointment Comment: [address], [address], [place] [address] Therapist Name of Therapist: [facility] The[facility]ist's Date of Therapist Appointment: 05/06/22 Therapy Appointment Comment: [address], [address], [place] [address] Assisted Sales Representative Name of Assisted Sales Representative: Venancio
[2022-05-07] MEDS: GABAPENTIN 100 MG CAP PO PRN (10:07)
[2022-05-07] MEDS ORDERED: GABAPENTIN 300 MG CAP PO ONE (15:22)
[2022-05-07] MEDS: QUEtiapine FUMARATE 200 MG TAB PO SCH (21:17)
[2022-05-08] MEDS: hydrOXYzine HCl 25 MG TAB PO PRN (02:31)
[2022-05-08] MEDS: lamoTRIgine 100 MG TAB PO SCH (08:09)
[2022-05-08] MEDS: VENLAFAXINE HCL XR 37.5 MG CAPXR PO SCH (08:09)
[2022-05-08] MEDS: PROPRANOLOL HCL 20 MG TAB PO SCH ×2 (08:10→17:06)
[2022-05-08] MEDS: QUEtiapine FUMARATE 25 MG TABLET PO SCH ×2 (08:10→16:59)
--- NOTE | 2022-05-08 08:47 | Psychiatric Progress Note ---
Date of Service May 08, 2022 Impression / Recommendations Impression The patient is a 21 year old with a history of ASD, BPAD, anxiety, depression who was admitted for inability to function. Diagnostically consistent with BPAD current depressive episode as well as COURT with panic attacks, PTSD with some derealization/depersonalization and ASD and ADHD by history. He has not found benzodiazepines nor SSRIs helpful in the past but has found some benefit from lamictal and seroquel. Seems that processing of past trauma has lead to significant worsening of mood symptoms as well as cannabis use likely contributing to high anxiety/panic attacks. The patient is deemed unstable and requires psychiatric hospitalization for diagnostic clarification, safety and stabilization, medication management and development of further coping skills. MNPR due to episodes of intense anxiety and overwhelming to peers. 05/08/22: Some lessening of panic attacks but still with impulsivity, high emotional reactivity leading to acute behavioral dysregulation requiring interruption and rescheduling of the family meeting and SI. Tolerating medications without side effects. [facility] for 20 minutes. (1) Bipolar 1 disorder, depressed, severe: (2) Generalized anxiety disorder with panic attacks: (3) Autism spectrum disorder: (4) Insomnia: (5) ADHD: Plan 05/08/22: Continue with current medications and tx plan. Suspect some of his sleep issues may be due to JUAN JOSE. Would encourage outpatient workup via his PCP for consideration for sleep study as if he does have untreated JUAN JOSE this is likely to negatively impact his mood over time. 05/07/22: Increase gabapentin to 300mg TID. Continue with Effexor XR and other medications. 05/06/22: The patient was admitted to the [facility] ([facility] mental health unit) on q15 min checks (behavioral with suicide precautions) for safety. The patient will participate in group, recreational, and milieu therapies and will be o ffered additional individual and family sessions as clinically appropriate. -Continue with seroquel and lamictal and propranolol -Add gabapentin 100mg TID prn for anxiety -Start Effexor XR 37.5mg qd -Fasting lipid panel/glucose tomorrow morning -Will reach out to his outpatient psychiatric provider -In future ideally could taper seroquel and consider mirtazapine trial and/or clonidine Inventory Assets Strengths: very involved with academics and [employer] community, supportive father, outpatient providers Needs: safety and stabilization, medication adjustment, additional coping skills, increased outpatient services Suicide Risk Level Suicide Risk Level: High-Moderate (q15 min suicide checks) Suicide Risk Level Comments: High-Moderate due to severe depression and anxiety with SI and behavioral dysregulation and history of constant panic attacks but feels safe in the hospital, able to safety contract and agrees to let nursing/staff know should they develop plan, intent or feel unable to remain safe. Risk Factors Assessment Male: Yes : Yes Do You Have Access To A Gun?: No Mental Health Diagnoses: Yes Previous Attempt: No Family History of Suicide: No Previous Psychiatric Hospitalization: No Hopelessness: Yes Protective Factors Assessment Employed: No Stable Relationships: Yes Supportive Family: Yes Good Rapport with Provider: Yes Interval History Identifying Information BLAKE LANDEROS is a 21-year-old and [employer] senior who currently lives in [place] with roommates, has a history of ASD, BPAD, ADHD, PTSD anxiety and depression, and was admitted on 05/05/22 12:48 on a 201 voluntary commitment for inability to function with lack of eating and sleeping over the last week. Chief Complaint "I'm doing a little better". Review of Systems Sleep Information Total Hours of Sleep: 4.5 Sleep Comments: pt given vistaril per rn. pt on q-15 minute checks Meal Information Percent Meal Consumed - Breakfast: 90 Percent Meal Consumed - Lunch: 75 Percent Meal Consumed - Dinner: 75 Subjective Subjective Patient was seen & assessed and interval progress reviewed with treatment team nursing and social work. Upset after call with his dad yesterday evening but only needed one prn gabapentin dose for panic yesterday. Noted to have snoring overnight. This morning did not require any prns and felt his mood was "improving" and denied any side effects from higher dose of gabapentin nor Effexor nor his other scheduled medications. Had significant change in his mood after social work discussed potential challenges with IOP and insurance coverage at which point he became escalated, was yelling at his dad during an attempted family meeting and stated SI. However, this seemed to lessen after processing this with social work and through guiding him through de-escalation strategies. Physical Exam Psychiatric Orientation: alert and oriented x 3 Apperance: appropriately dressed and appropriately groomed Eye Contact: good eye contact Motor Behavior: no abnormal motor movements Speech: normal rate/rhythm/volume of speech Affect: + depressed affect, + anxious affect, + tearful affect and + labile affect Mood: + depressed mood, + anxious mood, + irritable mood and + angry mood Thought Process: goal directed thought process Thought Content: reality based without delusions Suicidal Thoughts: + reports suicidal thoughts (impulsive SI after upsetting discussion about IOP but then denied ) Homicidal Thoughts: denies homicidal thoughts Hallucinations: no auditory hallucinations and no visual hallucinations Cognition: recent memory grossly intact, remote memory grossly intact, attention grossly intact and language grossly intact Estimated Intelligence: consistent with education level Insight: + limited insight Judgement: + limited judgement Vital Signs (Past 24 Hours) Last Vital Signs Temp 36.5 C 05/08/22 06:51 Pulse 79 05/08/22 06:51 Resp 18 05/08/22 06:51 BP 137/82 05/08/22 06:51 Pulse Ox 98 05/05/22 14:09 O2 Del Method 05/05/22 14:09 O2 Flow Rate 0 05/05/22 08:54 Results & Data ([facility]) Laboratory Results Laboratory Results - last 24 hr 05/07/22 08:23 Fasting Glucose 94 Triglycerides 139 Cholesterol 168 LDL Cholesterol, Calc 119 VLDL Cholesterol, Calc 28 HDL Cholesterol 21 Cholesterol/HDL Ratio 8.0 H Current Inpatient Medications Current Inpatient Medications: Current Inpatient Medications Acetaminophen (Acetaminophen 325 Mg Tab) 650 mg PO Q4H PRN PRN Reason: Headache or Minor Fever Stop: 06/04/22 12:47 Last Admin: 05/07/22 04:57 Dose: 650 mg Al Hydrox/Mg Hydrox/Simethicone (Aluminum/Magnesium Susp 30 Ml Udc) 30 ml PO Q4H PRN PRN Reason: GI Upset Stop: 06/04/22 12:47 Bismuth Subsalicylate (Bismuth Subsalicylate Liqd 236 Ml) 15 ml PO PRN PRN PRN Reason: Loose Stool Stop: 06/04/22 12:47 Gabapentin (Gabapentin 300 Mg Cap) 300 mg PO TID PRN PRN Reason: Anxiety Stop: 06/05/22 10:43 Hydroxyzine HCl (Hydroxyzine Hcl 25 Mg Tab) 50 mg PO HSZ PRN PRN Reason: Insomnia Stop: 06/04/22 12:47 Last Admin: 05/08/22 02:31 Dose: 50 mg Hydroxyzine HCl (Hydroxyzine Hcl 25 Mg Tab) 25 mg PO Q4H PRN PRN Reason: Anxiety Stop: 06/04/22 12:47 Last Admin: 05/06/22 15:15 Dose: 25 mg Lamotrigine (Lamotrigine 100 Mg Tab) 150 mg PO DAILY SHA Stop: 06/05/22 08:59 Last Admin: 05/08/22 08:09 Dose: 150 mg Magnesium Hydroxide (Magnesium Hydroxide Susp 30 Ml Udc) 30 ml PO DAILY PRN PRN Reason: Constipation Stop: 06/04/22 12:47 Propranolol HCl (Propranolol Hcl 20 Mg Tab) 20 mg PO BID@0900,1600 SHA Stop: 06/05/22 08:59 Last Admin: 05/08/22 08:10 Dose: 20 mg Quetiapine Fumarate (Quetiapine Fumarate 200 Mg Tab) 200 mg PO HS SHA Stop: 06/04/22 21:59 Last Admin: 05/07/22 21:17 Dose: 200 mg Quetiapine Fumarate (Quetiapine Fumarate 25 Mg Tablet) 25 mg PO BID@0900,1600 SHA Stop: 06/05/22 08:59 Last Admin: 05/08/22 08:10 Dose: 25 mg Sodium Chloride (Sodium Chloride 0.65% Na Soln 45 Ml ([place])) 1 - 2 sprays NA PRN PRN PRN Reason: Nasal Dryness/Congestion Stop: 06/04/22 12:47 Venlafaxine HCl (Venlafaxine Hcl Xr 37.5 Mg Capxr) 37.5 mg PO QAM SHA Stop: 06/05/22 10:44 Last Admin: 05/08/22 08:09 Dose: 37.5 mg Mental Health & Subst Abuse Tx Psychiatrist Name of Psychiatrist: Geetha Gabriel Psychiatrist's Date of Appointment with Psychiatrist: 05/14/22 Time of Appointment with Psychiatrist: 8:00 AM Psychiatric Appointment Comment: [address] [facility], [address], [place] [address] Therapist Name of Therapist: [facility] Therapist's Date of Therapist Appointment: 05/13/22 Time of Therapist Appointment: 9:30 AM Therapy Appointment Comment: [address], [address], [place] [address] Finish Repair Worker Name of Finish Repair Worker: None Post Discharge Appointments Primary Care Physician Name Of Family Doctor: [facility] Primary Care Provider Appointment Comment: Follow with [facility] as needed. Contact Information Discharge Discharge Address: [address] [place] [address], [place] [address], [place] [address]
[2022-05-08] MEDS: GABAPENTIN 300 MG CAP PO PRN (15:39)
[2022-05-08] MEDS: QUEtiapine FUMARATE 200 MG TAB PO SCH (21:26)
[2022-05-09] MEDS: lamoTRIgine 100 MG TAB PO SCH (08:10)
[2022-05-09] MEDS: PROPRANOLOL HCL 20 MG TAB PO SCH ×2 (08:10→16:01)
[2022-05-09] MEDS: QUEtiapine FUMARATE 25 MG TABLET PO SCH ×2 (08:11→16:01)
[2022-05-09] MEDS: VENLAFAXINE HCL XR 37.5 MG CAPXR PO SCH (08:11)
[2022-05-09] MEDS: GABAPENTIN 300 MG CAP PO PRN (12:46)
--- NOTE | 2022-05-09 14:37 | Psychiatric Progress Note ---
Date of Service May 09, 2022 Impression / Recommendations Impression The patient is a 21 year old with a history of ASD, BPAD, anxiety, depression who was admitted for inability to function. Diagnostically consistent with BPAD current depressive episode as well as COURT with panic attacks, PTSD with some derealization/depersonalization and ASD and ADHD by history. He has not found benzodiazepines nor SSRIs helpful in the past but has found some benefit from lamictal and seroquel. Seems that processing of past trauma has lead to significant worsening of mood symptoms as well as cannabis use likely contributing to high anxiety/panic attacks. The patient is deemed unstable and requires psychiatric hospitalization for diagnostic clarification, safety and stabilization, medication management and development of further coping skills. MNPR due to episodes of intense anxiety and overwhelming to peers. 05/09/22: Still with anxiety and depression but no panic attacks today and lessening of emotional reactivity. Will have family meeting today. Tolerating medications well. Reviewed option for sleep study consideration with his PCP if sleep problems persist even after improvement in his mood. (1) Bipolar 1 disorder, depressed, severe: (2) Generalized anxiety disorder with panic attacks: (3) Autism spectrum disorder: (4) Insomnia: (5) ADHD: Plan 05/09/22: Ongoing motivational interviewing regarding cannabis use. Continue current medications and tx plan. Family meeting to be held today. 05/08/22: Continue with current medications and tx plan. Suspect some of his sleep issues may be due to JUAN JOSE. Would encourage outpatient workup via his PCP for consideration for sleep study as if he does have untreated JUAN JOSE this is likely to negatively impact his mood over time. 05/07/22: Increase gabapentin to 300mg TID. Continue with Effexor XR and other medications. 05/06/22: The patient was admitted to the [facility] ([facility]) on q15 min checks (behavioral with suicide precautions) for safety. The patient will participate in group, recreational, and milieu therapies and will be offered additional individual and family sessions as clinically appropriate. -Continue with seroquel and lamictal and propranolol -Add gabapentin 100mg TID prn for anxiety -Start Effexor XR 37.5mg qd -Fasting lipid panel/glucose tomorrow morning -Will reach out to his outpatient psychiatric provider -In future ideally could taper seroquel and consider mirtazapine trial and/or clonidine Inventory Assets Strengths: very involved with academics and [employer] community, supportive father, outpatient providers Needs: safety and stabilization, medication adjustment, additional coping skills, increased outpatient services Suicide Risk Level Suicide Risk Level: High-Moderate (q15 min suicide checks) Suicide Risk Level Comments: High-Moderate due to severe depression and anxiety with SI and behavioral dysregulation and history of constant panic attacks but feels safe in the hospital, able to safety contract and agrees to let nursing/staff know should they develop plan, intent or feel unable to remain safe. Risk Factors Assessment Male: Yes : Yes Do You Have Access To A Gun?: No Mental Health Diagnoses: Yes Previous Attempt: No Family History of Suicide: No Previous Psychiatric Hospitalization: No Hopelessness: Yes Protective Factors Assessment Employed: No Stable Relationships: Yes Supportive Family: Yes Good Rapport with Provider: Yes Interval History Identifying Information BLAKE LANDEROS is a 21-year-old and [employer] senior who currently lives in [place] with roommates, has a history of ASD, BPAD, ADHD, PTSD anxiety and depression, and was admitted on 05/05/22 12:48 on a 201 voluntary commitment for inability to function with lack of eating and sleeping over the last week. Chief Complaint "My anxiety got worse around noon". Review of Systems Sleep Information Total Hours of Sleep: 6 Sleep Comments: pt given vistaril per rn. pt on q-15 minute checks Meal Information Percent Meal Consumed - Breakfast: 100 Percent Meal Consumed - Lunch: 90 Percent Meal Consumed - Dinner: 100 Subjective Subjective Patient was seen & assessed and interval progress reviewed with treatment team nursing and social work. Has some anxiety today about re-scheduled family meeting. Processed events yesterday and he notes "I need to do a better job of pausing before reacting". Discussed that he tends to avoid telling his dad about his mental health struggles because he doesn't want him to worry so explored ways he can involve his dad more and let him know when he wants advice versus just sharing his struggles. He hasn't had any panic attacks so far today. No side effects from Effexor, had some night sweats last night but said this occurs when he thinks about his mom/past trauma and was occurring prior to starting effexor. Denies any gabpentin side effects finds this very helpful. He plans to avoid cannabis use moving forward as he is no longer craving it since anxiety has improved. Physical Exam Psychiatric Orientation: alert and oriented x 3 Apperance: appropriately dressed and appropriately groomed Eye Contact: good eye contact Motor Behavior: no abnormal motor movements Speech: normal rate/rhythm/volume of speech Affect: + anxious affect Mood: + depressed mood and + anxious mood Thought Process: goal directed thought process Thought Content: reality based without delusions Homicidal Thoughts: denies homicidal thoughts Hallucinations: no auditory hallucinations and no visual hallucinations Cognition: recent memory grossly intact, remote memory grossly intact, attention grossly intact and language grossly intact Estimated Intelligence: consistent with education level Insight: + fair insight Judgement: + fair judgement Vital Signs (Past 24 Hours) Last Vital Signs Temp 36.4 C L 05/09/22 06:40 Pulse 70 05/09/22 06:41 Resp 16 05/09/22 06:40 BP 125/81 05/09/22 06:41 Pulse Ox 98 05/05/22 14:09 O2 Del Method 05/05/22 14:09 O2 Flow Rate 0 05/05/22 08:54 Results & Data ([facility]) Current Inpatient Medications Current Inpatient Medications: Current Inpatient Medications Acetaminophen (Acetaminophen 325 Mg Tab) 650 mg PO Q4H PRN PRN Reason: Headache or Minor Fever Stop: 06/04/22 12:47 Last Admin: 05/07/22 04:57 Dose: 650 mg Al Hydrox/Mg Hydrox/Simethicone (Aluminum/Magnesium Susp 30 Ml Udc) 30 ml PO Q4H PRN PRN Reason: GI Upset Stop: 06/04/22 12:47 Last Admin: 05/08/22 21:26 Dose: 30 ml Bismuth Subsalicylate (Bismuth Subsalicylate Liqd 236 Ml) 15 ml PO PRN PRN PRN Reason: Loose Stool Stop: 06/04/22 12:47 Gabapentin (Gabapentin 300 Mg Cap) 300 mg PO TID PRN PRN Reason: Anxiety Stop: 06/05/22 10:43 Last Admin: 05/09/22 12:46 Dose: 300 mg Hydroxyzine HCl (Hydroxyzine Hcl 25 Mg Tab) 50 mg PO HSZ PRN PRN Reason: Insomnia Stop: 06/04/22 12:47 Last Admin: 05/08/22 02:31 Dose: 50 mg Hydroxyzine HCl (Hydroxyzine Hcl 25 Mg Tab) 25 mg PO Q4H PRN PRN Reason: Anxiety Stop: 06/04/22 12:47 Last Admin: 05/06/22 15:15 Dose: 25 mg Lamotrigine (Lamotrigine 100 Mg Tab) 150 mg PO DAILY SHA Stop: 06/05/22 08:59 Last Admin: 05/09/22 08:10 Dose: 150 mg Magnesium Hydroxide (Magnesium Hydroxide Susp 30 Ml Udc) 30 ml PO DAILY PRN PRN Reason: Constipation Stop: 06/04/22 12:47 Propranolol HCl (Propranolol Hcl 20 Mg Tab) 20 mg PO BID@0900,1600 SHA Stop: 06/05/22 08:59 Last Admin: 05/09/22 08:10 Dose: 20 mg Quetiapine Fumarate (Quetiapine Fumarate 200 Mg Tab) 200 mg PO HS SHA Stop: 06/04/22 21:59 Last Admin: 05/08/22 21:26 Dose: 200 mg Quetiapine Fumarate (Quetiapine Fumarate 25 Mg Tablet) 25 mg PO BID@0900,1600 SHA Stop: 06/05/22 08:59 Last Admin: 05/09/22 08:11 Dose: 25 mg Sodium Chloride (Sodium Chloride 0.65% Na Soln 45 Ml ([place])) 1 - 2 sprays NA PRN PRN PRN Reason: Nasal Dryness/Congestion Stop: 06/04/22 12:47 Venlafaxine HCl (Venlafaxine Hcl Xr 37.5 Mg Capxr) 37.5 mg PO QAM SHA Stop: 06/05/22 10:44 Last Admin: 05/09/22 08:11 Dose: 37.5 mg Mental Health & Subst Abuse Tx Psychiatrist Name of Psychiatrist: Geetha Gabriel Psychiatrist's Date of Appointment with Psychiatrist: 05/14/22 Time of Appointment with Psychiatrist: 8:00 AM Psychiatric Appointment Comment: [address], [address], [place] [address] Therapist Name of Therapist: [facility] Date of Therapist Appointment: 05/13/22 Time of Therapist Appointment: 9:30 AM Therapy Appointment Comment: [address] [facility] [facility], [address], [place] [address] Internal Sales Engineer Name of Internal Sales Engineer: [facility] Date of Appointment with Internal Sales Engineer: 05/13/22 Time of Appointment with Internal Sales Engineer: 1:30 PM Case Management Appointment Comment: A Zoom link will be sent to your email to attend virtually. Post Discharge Appointments Primary Care Physician Name Of Family Doctor: [facility] Primary Care Provider Appointment Comment: Follow with [facility] as needed. Contact Information Discharge Discharge Address: [address] [place] [address], [place] [id number], [place] [address]
[2022-05-09] MEDS: QUEtiapine FUMARATE 200 MG TAB PO SCH (21:31)
[2022-05-09] MEDS: hydrOXYzine HCl 25 MG TAB PO PRN (22:27)
[2022-05-10] MEDS: hydrOXYzine HCl 25 MG TAB PO PRN (07:03)
[2022-05-10] MEDS: VENLAFAXINE HCL XR 37.5 MG CAPXR PO SCH (08:30)
[2022-05-10] MEDS: PROPRANOLOL HCL 20 MG TAB PO SCH (08:30)
[2022-05-10] MEDS: QUEtiapine FUMARATE 25 MG TABLET PO SCH (08:30)
[2022-05-10] MEDS: lamoTRIgine 100 MG TAB PO SCH (08:31)
[2022-05-10] MEDS: GABAPENTIN 300 MG CAP PO PRN (08:44)
--- NOTE | 2022-05-10 09:04 | Discharge Summary ---
Date of Service May 10, 2022 History of Present Illness Des presents for psychiatric admission for worsening depression, anxiety and inability to function including lack of sleep and not eating in the context of multiple psychosocial stressors including the transition of starting his senior year of college, managing expectations and grief from the of his mother, feeling overwhelmed by his courses/club obligations and processing past traumatic events. He has extreme tearfulness from the moment we started the interview and he notes "I'm just really afraid that nothing is going to work or help". He notes that he's tried a lot of medication and that they seem to help very much. He notes "I have to do coping mechanisms 05/04 or I constantly have panic attacks". States he already had two panic attacks this morning.He states that because his anxiety has been so severe he hasn't been able "to eat all week". Since returning to campus last week for the start of his [employer] senior year he has felt extremely overwhelmed and has not been able to function. He attributes some of his challenges to processing past trauma for the first time in recent weeks and that's made him feel very anxious and hopeless. He endorse depressive symptoms including anhedonia, tearfulness, hopelessness, helplessness, decreased energy, decreased motivation, decreased concentration (went to class on Wednesday and couldn't remember anything or pay attention), decreased sleep with frequent awakenings, decreased appetite. Also with intermittent passive SI "because I just wish this would stop". He endorse anxiety symptoms including excessive worry, restlessness, fatigue, muscle tension, "pit of my stomach", "hot flashes", insomnia, decreased concentration, and panic attacks about 6-7 per day which last 20minutes to an hour "with physical symptoms from the minute I wake up till the moment I go to bed" and fear about leaving his room due to having more panic attacks. He endorse PTSD symptoms including intrusive memories, mood changes, emotional lability, decreased concentration, denies night terrors. Endorses significant depersonalization/derealization. He says he often feels "like everything is fake and like there is a veil over my life" and sometimes like he is outside his body watching himself "go through the motions". He experienced it yesterday, it comes and goes since Brian year of high school. He is currently prescribed psychiatric medications of lamictal (on for about 3 months, he's not sure if it's had an effect), Seroquel (for about 2 months, he feels it worked at first by helping him sleep and less "outbursts of emotion"), propranolol (for a few years in the past and then restarted after lamictal for restlessness, he's unsure if this helps) . Psychiatric ROS notable for history of manic episode in the spring with increase in activities, wasn't sleeping, high energy, elevated mood; no hx psychosis; no hx OCD nor eating disorder nor self-harm. Physical Exam Vital Signs (Past 24 Hours) Last Vital Signs Temp 36.5 C 05/10/22 08:19 Pulse 111 H 05/10/22 08:19 Resp 16 05/10/22 08:19 BP 132/83 05/10/22 08:19 Pulse Ox 98 05/10/22 08:19 O2 Del Method 05/05/22 14:09 O2 Flow Rate 0 05/05/22 08:54 See admission H&P and DOD summary. Principal Diagnosis Bipolar Disorder type II, major depressive episode; Generalized anxiety disorder with panic attacks Psychiatric Data See daily stay summary. In short, patient was engaged with the social/therapeutic milieu of the unit, safety was maintained and the patient was cooperative with care. Medication changes included addition of venlafaxine ER and gabapentin for anxiety and depression and they tolerated this well. Ideally he can be tapered off seroquel in the future if his mood improves and as insomnia and anxiety improve. Reviewed recommendation for sleep study in the future, obstructive sleep apnea evaluation if sleep becomes problematic again in the future. Reviewed that his BP was elevated at times during his admission and recommended he continue to check his BP routinely, his father has a BP cuff, and to discuss with his PCP if it remains elevated after his anxiety improves or does not improve. A family session was held and safety plan was completed prior to discharge. He actively and insightfully participated in safety planning and in discussions about ways to seek support and recognizing warning signs and utilizing coping skills. Reviewed mobile apps that could be used for additional ways to have their safety plan and contacts easily available and to manage periods of emotional reactivity and panic attacks. Reviewed importance of seeking emergency care should SI occur in the future or should they feel unsafe in the future which they agree to do. On the day of discharge he stated his mood was "a little nervous but I'm ready to go" and remained future-oriented including seeing his dad, seeing his friends, seeing his dog, "being able to focus on me", possibly joining a community choir if he decides to take a break from [employer] and engaging in aftercare appointments for psychiatry, IOP for anxiety/mood and [employer] student care and advocacy. Day of Discharge Assessment Today the patient voices readiness for discharge. They note improvement in mood and anxiety. They deny thoughts of harm to self or others. Thoughts are organized and they are clinically improved from admission. There is no evidence of psychosis. They improved in the hospital with support and medication adjustments. They agree to take medications as prescribed and keep follow-up appointments. At the time of the discharge they are deemed to be stable and appropriate for outpatient level of care. They are not deemed to be at imminent risk of harm to self or others. They are aware of emergency and crisis services. Knows to call 911 or go to nearest emergency care center if in a crisis which cannot be handled as an outpatient. Transition of Care Transition Of Care Record: was reviewed with the patient Advance Directives Advance Directives Information Provided: Yes Advance Directives: No Mental Health Advance Directive: No Advance Directives on File: No Living Will: No Power of Education Manager: No Advance Directives Reason:: Declines as Mental Health Visit. Suicide Risk Level Suicide Risk Level Comments: Acute risk is low given improvement in mood and denial of SI, lack of access to lethal means, plan to avoid substance use, improvement in sleep, hopefulness , reduction in panic attacks. Chronic risk is low to moderate given psychiatric co-morbid diagnoses, periods of impulsivity, emotional reactivity, mood disorder but also with protective factors including many social supports, no prior attempts, willingness to engage with further CBT work and good rapport with his outpatient providers. Counseled on ways to reduce acute and chronic risk including engaging with outpatient providers, using safety plan if needed, utilizing supports, taking medication, and using coping skills. Modifiable risk factors of anxiety, panic attacks and depression were addressed during hospit alization through development of new coping skills, family meeting, safety planning, and medication adjustments. 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) Stable Relationships: Yes Supportive Family: Yes Good Rapport with Provider: Yes Tobacco Cessation at Discharge Tobacco Cessation Medication Prescribed at Discharge: Not Applicable/Non-Smoker Discharge Data Lab Results 05/05/22 05/05/22 05/05/22 09:24 09:24 09:24 WBC RBC Hgb Hct MCV MCH MCHC RDW Std Deviation RDW Coeff of Marine Plt Count MPV Immature Gran % (Auto) Neut % (Auto) Lymph % (Auto) [place] % (Auto) Eos % (Auto) Baso % (Auto) Neut # (Auto) Lymph # (Auto) [place] # (Auto) Eos # (Auto) Baso # (Auto) Immature Gran # (Auto) Sodium Potassium Chloride Carbon Dioxide Anion Gap BUN Creatinine Est Cr Clr Drug Dosing Est GFR ( Amer) Est GFR (Non-Af Amer) BUN/Creatinine Ratio Glucose Fasting Glucose Calcium Magnesium Total Bilirubin AST ALT Alkaline Phosphatase Total Protein Albumin Globulin Albumin/Globulin Ratio Triglycerides Cholesterol LDL Cholesterol, Calc VLDL Cholesterol, Calc HDL Cholesterol Cholesterol/HDL Ratio TSH Urine Color Yellow Urine Appearance Clear Urine pH 6.5 Ur Specific [place] 1.013 Urine Protein Negative Urine Glucose (UA) Negative Urine Ketones Trace H Urine Blood Negative Urine Nitrite Negative Urine Bilirubin Negative Urine Urobilinogen Negative Ur Leukocyte Esterase Negative Salicylates Urine Opiates Screen Neg Ur Methadone, Qual Neg Acetaminophen Urine Barbiturates Neg Ur Phencyclidine (PCP) Neg U Amphetamin/Meth Scrn Neg MDMA (Ecstasy) Screen Neg U Benzodiazepines Scrn Neg Ur Cocaine Metabolite Neg U Marijuana (THC) Screen Pos H U Marijuana THC Carboxy 2051 H Drug Screen Comment SEE NOTE Ethyl Alcohol mg/dL SARS-CoV-2, RNA, NAAT 05/05/22 05/05/22 05/05/22 09:29 09:41 09:41 WBC 8.74 RBC 5.14 Hgb 15.5 Hct 43.3 MCV 84.2 MCH 30.2 MCHC 35.8 RDW Std Deviation 38.1 RDW Coeff of Marine 12.5 Plt Count 238 MPV 11.0 Immature Gran % (Auto) 0.5 Neut % (Auto) 71.8 Lymph % (Auto) 18.5 [place] % (Auto) 6.8 Eos % (Auto) 1.9 Baso % (Auto) 0.5 Neut # (Auto) 6.28 Lymph # (Auto) 1.62 Otoe # (Auto) 0.59 Eos # (Auto) 0.17 Baso # (Auto) 0.04 Immature Gran # (Auto) 0.04 H Sodium 139 Potassium 3.6 Chloride 105 Carbon Dioxide 27 Anion Gap 7 BUN 10 Creatinine 1.10 Est Cr Clr Drug Dosing 177.8 Est GFR ( Amer) 110.6 Est GFR (Non-Af Amer) 95.5 BUN/Creatinine Ratio 9.1 L Glucose 93 Fasting Glucose Calcium 9.3 Magnesium 2.1 Total Bilirubin 1.2 H AST 18 ALT 32 Alkaline Phosphatase 59 Total Protein 7.5 Albumin 4.5 Globulin 3.0 Albumin/Globulin Ratio 1.5 Triglycerides Cholesterol LDL Cholesterol, Calc VLDL Cholesterol, Calc HDL Cholesterol Cholesterol/HDL Ratio TSH Urine Color Urine Appearance Urine pH Ur Specific [place] Urine Protein Urine Glucose (UA) Urine Ketones Urine Blood Urine Nitrite Urine Bilirubin Urine Urobilinogen Ur Leukocyte Esterase Salicylates Urine Opiates Screen Ur Methadone, Qual Acetaminophen Urine Barbiturates Ur Phencyclidine (PCP) U Amphetamin/Meth Scrn MDMA (Ecstasy) Screen U Benzodiazepines Scrn Ur Cocaine Metabolite U Marijuana (THC) Screen U Marijuana THC Carboxy Drug Screen Comment Ethyl Alcohol mg/dL SARS-CoV-2, RNA, NAAT NEGATIVE 05/05/22 05/05/22 05/05/22 09:41 09:41 09:41 WBC RBC Hgb Hct MCV MCH MCHC RDW Std Deviation RDW Coeff of Marine Plt Count MPV Immature Gran % (Auto) Neut % (Auto) Lymph % (Auto) [place] % (Auto) Eos % (Auto) Baso % (Auto) Neut # (Auto) Lymph # (Auto) [place] # (Auto) Eos # (Auto) Baso # (Auto) Immature Gran # (Auto) Sodium Potassium Chloride Carbon Dioxide Anion Gap BUN Creatinine Est Cr Clr Drug Dosing Est GFR ( Amer) Est GFR (Non-Af Amer) BUN/Creatinine Ratio Glucose Fasting Glucose Calcium Magnesium Total Bilirubin AST ALT Alkaline Phosphatase Total Protein Albumin Globulin Albumin/Globulin Ratio Triglycerides Cholesterol LDL Cholesterol, Calc VLDL Cholesterol, Calc HDL Cholesterol Cholesterol/HDL Ratio TSH 2.684 Urine Color Urine Appearance Urine pH Ur Specific [place] Urine Protein Urine Glucose (UA) Urine Ketones Urine Blood Urine Nitrite Urine Bilirubin Urine Urobilinogen Ur Leukocyte Esterase Salicylates < 3.0 L Urine Opiates Screen Ur Methadone, Qual Acetaminophen < 3 L Urine Barbiturates Ur Phencyclidine (PCP) U Amphetamin/Meth Scrn MDMA (Ecstasy) Screen U Benzodiazepines Scrn Ur Cocaine Metabolite U Marijuana (THC) Screen U Marijuana THC Carboxy Drug Screen Comment Ethyl Alcohol mg/dL < 10.0 SARS-CoV-2, RNA, NAAT 05/07/22 08:23 WBC RBC Hgb Hct MCV MCH MCHC RDW Std Deviation RDW Coeff of Marine Plt Count MPV Immature Gran % (Auto) Neut % (Auto) Lymph % (Auto) [place] % (Auto) Eos % (Auto) Baso % (Auto) Neut # (Auto) Lymph # (Auto) [place] # (Auto) Eos # (Auto) Baso # (Auto) Immature Gran # (Auto) Sodium Potassium Chloride Carbon Dioxide Anion Gap BUN Creatinine Est Cr Clr Drug Dosing Est GFR ( Amer) Est GFR (Non-Af Amer) BUN/Creatinine Ratio Glucose Fasting Glucose 94 Calcium Magnesium Total Bilirubin AST ALT Alkaline Phosphatase Total Protein Albumin Globulin Albumin/Globulin Ratio Triglycerides 139 Cholesterol 168 LDL Cholesterol, Calc 119 VLDL Cholesterol, Calc 28 HDL Cholesterol 21 Cholesterol/HDL Ratio 8.0 H TSH Urine Color Urine Appearance Urine pH Ur Specific [place] Urine Protein Urine Glucose (UA) Urine Ketones Urine Blood Urine Nitrite Urine Bilirubin Urine Urobilinogen Ur Leukocyte Esterase Salicylates Urine Opiates Screen Ur Methadone, Qual Acetaminophen Urine Barbiturates Ur Phencyclidine (PCP) U Amphetamin/Meth Scrn MDMA (Ecstasy) Screen U Benzodiazepines Scrn Ur Cocaine Metabolite U Marijuana (THC) Screen U Marijuana THC Carboxy Drug Screen Comment Ethyl Alcohol mg/dL SARS-CoV-2, RNA, NAAT Hospital Course (1) Generalized anxiety disorder with panic attacks: (2) Autism spectrum disorder: (3) Insomnia: (4) ADHD: (5) Bipolar II disorder major depressive with melancholic features: Plan 05/09/22: Ongoing motivational interviewing regarding cannabis use. Continue current medications and tx plan. Family meeting to be held today. 05/08/22: Continue with current medications and tx plan. Suspect some of his sleep issues may be due to JUAN JOSE. Would encourage outpatient workup via his PCP for consideration for sleep study as if he does have untreated JUAN JOSE this is likely to negatively impact his mood over time. 05/07/22: Increase gabapentin to 300mg TID. Continue with Effexor XR and other medications. 05/06/22: The patient was [facility] on q15 min checks (behavioral with suicide precautions) for safety. The patient will participate in group, recreational, and milieu therapies and will be offered additional individual and family sessions as clinically appropriate. -Continue with seroquel and lamictal and propranolol -Add gabapentin 100mg TID prn for anxiety -Start Effexor XR 37.5mg qd -Fasting lipid panel/glucose tomorrow morning -Will reach out to his outpatient psychiatric provider -In future ideally could taper seroquel and consider mirtazapine trial and/or clonidine Mental Health & Subst Abuse Tx Psychiatrist Name of Psychiatrist: [facility]- Madiha Gabriel Psychiatrist's Date of Appointment with Psychiatrist: 05/14/22 Time of Appointment with Psychiatrist: 8:00 AM Psychiatric Appointment Comment: [address], [address], [place] [address] Therapist Name of Therapist: Johnny Borges- Janina Villeda Therapist's Date of Therapist Appointment: 05/13/22 Time of Therapist Appointment: 9:30 AM Therapy Appointment Comment: [address], [address], [place] [address] Heater Operator Name of Heater Operator: Chace - Student Care and Advocacy Date of Appointment with Heater Operator: 05/13/22 Time of Appointment with Heater Operator: 1:30 PM Case Management Appointment Comment: A Zoom link will be sent to your email to attend virtually. Post Discharge Appointments Primary Care Physician Name Of Family Doctor: [facility] Primary Care Provider Appointment Comment: Follow with [facility] as needed. Smoking Cessation Counseling Tobacco Cessation Medication Prescribed at Discharge: Not Applicable/Non-Smoker Other #1: Name of Aftercare Appointment: [facility] Phone Number of Aftercare Appointment: [phone] Date of Aftercare Appointment: 05/13/22 Time of Aftercare Appointment: 12:00 PM Aftercare Appointment Comment: A Zoom link will be sent to your email to attend virtually. Contact Information Discharge Discharge Address: [address] [place] [address], [address], [place] [address] Discharge Plan Discharge Items Patient Disposition: Home - Self-Care Reason For Visit: UNSPECIFIED MOOD DISORDER Discharge Diagnosis: Bipolar Disorder Type II, current depressive episode Condition on Discharge: Good Activity: Resume your previous activity Non-emergency contact: Primary Care Provider and Psychiatrist Call non-emergency contact if: you have any medication questions and your symptoms worsen Follow-up/Referrals: [place] [Primary Care Provider] - Diet: Regular Addtl Attending Provider Instructions: Optional mobile apps we discussed: -Suicide safety plan -Virtual Hope Box -[employer] Faculty Member SPECIAL CARE INSTRUCTIONS: 1. Follow through with your scheduled aftercare appointments. If unable to keep an appointment, please call to reschedule. 2. Take your medication only as prescribed. Medication should not be changed or stopped without the approval of your doctor. In the event of worsening symptoms or concerns about side effects, contact your doctor immediately. 3. Utilize new healthy coping skills, anger management skills, and stress management skills learned during your hospitalization. Journal feelings and process them with a support person. Identify stressors or situations that may result in relapse, deterioration or inappropriate behaviors and develop a plan to deal with those issues. 4. If your coping skills are ineffective and you are in crisis, contact your outpatient providers for direction. If unable to reach your providers, please call the [facility] CRISIS LINE AT , go to the [facility] walk-in center at [address] [place] [address], [facility], [place], or go to the closest Emergency Room. 5. Avoid alcohol and un-prescribed drugs. 6. You have been provided with the Mental Health Advance Directives Pamphlet for your review. 7. Your condition is stable for discharge to outpatient level of care, but recovery is an ongoing process. Ifthoughts to harm yourself or others return, follow the safety plan developed during your stay. Planning for a safe return home includes securing weapons. Our treatment team recommends weaponsbe removed from the home until your outpatient provider reassesses your progress. In rare cases where the items themselvescannot be removed, guns and ammunitionshould be secured separatelyand keys stored by a reliable personoutside of the home. If you were admitted on an involuntary commitment, the police or other legal authorities may be involved in this process. AFTERCARE APPOINTMENTS: * Please call your insurance company prior to your scheduled appointment to confirm your aftercare providers are covered. Take your insurance information to your appointments. WHO TO CALL AND WHEN: Medical Emergencies: For questions or emergencies related to your hospital stay, please contact the Inpatient Behavioral Health Unit at [phone]. A advanced practice psychiatric nurse is on-call 05/04 for the Behavioral Health Unit for emergencies At any time you feel your situation is an emergency, you may also call 911 immediately. Pending Studies at Discharge: No Stand-Alone Forms: My [facility] Medications and DC Order Prescriptions: New venlafaxine 37.5 mg Capsule,Extended Release 24hr 37.5 mg PO QAM 30 Days Qty: 30 0RF gabapentin 300 mg Capsule 300 mg PO TID PRN (Reason: anxiety) 30 Days Qty: 90 0RF hydroxyzine HCl 25 mg Tablet 25 mg PO BID PRN (Reason: panic attacks/insomnia) 30 Days Qty: 60 0RF Rx Instructions: To be taken if gabapentin is not effective Continued quetiapine 25 mg tablet See Rx Instructions .ROUTE .COMPLEX Rx Instructions: 25MG PO BID and 200 mg PO HS. lamotrigine 150 mg tablet 150 mg PO DAILY propranolol 20 mg tablet 20 mg PO BID Discharge Orders: Discharge Order (Routine); Ordered 05/10/22 Ordered By: Elma Guzman/Other Patient Handouts: Journaling for Mental Health Admission Data Admit Date/Time: 05/05/22 12:48 Attending Provider: Elma Pineda Admit Provider: Elma Pineda Primary Care Provider: [place] Other Interventions: Discharge Summary Assessment (RN) Last Done: 05/10/22 08:19 PSY Interdisciplinary Discharge Planning Last Done: 05/10/22 10:48 Coding Level of Care Code 11116 D/C day mgmt > 30 min Diagnoses Generalized anxiety disorder with panic attacks F41.1; F41.0 Autism spectrum disorder F84.0 Insomnia G47.00 ADHD F90.9 Bipolar II disorder major depressive with melancholic features F31.81 Time Spent (min) 40
== END 2022-05-10 11:03 | disposition home or self-care (01) | DRG 885 ==
LOC: ED 08:53 → 3S 12:48 → ED 13:12 → 3S 05-06 02:08
DX: Z63.4 Disappearance and death of family member; F43.10 Post-traumatic stress disorder, unspecified; F84.0 Autistic disorder; F41.1 Generalized anxiety disorder; Z79.899 Other long term (current) drug therapy; Z60.8 Other problems related to social environment; F17.200 Nicotine dependence, unspecified, uncomplicated; Z91.018 Allergy to other foods; G47.00 Insomnia, unspecified; F90.9 Attention-deficit hyperactivity disorder, unspecified type; F41.0 Panic disorder [episodic paroxysmal anxiety]; F31.81 Bipolar II disorder